=== PATIENT | female | born 1980 | race Caucasian/White ===

== ENCOUNTER 2019-07-22 16:34 | Emergency (ER) | payer BC ==
[~2019-07-22] VITALS: Ht 167.6 cm; Wt 122.5 kg
[2019-07-22 16:50] VITALS: BP 158/89
[2019-07-22] MEDS ORDERED: HYDROcodone/APAP 5/325MG 1 TAB TABLET PO ONE (17:00)
--- NOTE | 2019-07-22 17:06 | PHYS DOC ---
Past Medical History Past Medical History: Diabetes-Type II, Pancreatitis Additional Past Medical Histor: POLYCYSTIC OVIARIAN DISEASE (LESLIE PINEDA APRN) Past Surgical History: Cholecystectomy Additional Past Surgical Histo: RIGHT ANKLE (LESLIE PINEDA APRN) Alcohol Use: None Drug Use: None (LESLIE PINEDA APRN) Attending Signature I have participated in the care of this patient and I have reviewed and agree with all pertinent clinical information above including history, exam, and recommendations. (CHERELLE SHANKAR MD) Adult General Chief Complaint Chief Complaint: TOE PROBLEM HPI HPI Patient is a 38 year old female who presents with Patient states a metal piece under her bed jammed between her Right third and fourth toe this morning. Patient has bruising and 1+ swelling to the 4th toe and the dorsal foot just distal to the 3rd, 4th, and fifth toes. There is also tenderness in the areas of bruising. Patient rates her pain a 9./10 and states it is throbbing. (LESLIE PINEDA APRN) Review of Systems Review of Systems Musculoskeletal: Denies back pain. Right foot pain and bruising joint pain [] Integument: Bruising to right 3rd toe and dorsal foot. Denies rash or skin lesions [] All other systems were reviewed and found to be within normal limits, except as documented in this note. (LESLIE PINEDA APRN) Current Medications Current Medications Current Medications Medications (Trade) Dose Ordered Sig/Janie Start Time Stop Time Status Last Admin Dose Admin Acetaminophen/ Hydrocodone Bitart (Lortab 5/325) 1 tab 1X ONCE 07/22/19 17:00 07/22/19 17:02 DC 07/22/19 17:09 1 TAB (CHERELLE SHANKAR MD) Allergies Allergies Allergies Coded Allergies Type Severity Reaction Last Updated Verified No Known Drug Allergies 07/22/19 No (CHERELLE SHANKAR MD) Physical Exam Physical Exam Constitutional: Well developed, well nourished, no acute distress, non-toxic appearance. [] Skin: Warm, dry, no erythema, no rash. [] Extremities: Right 3rd toe and dorsal foot tenderness, no cyanosis, no clubbing, ROM intact, Right 3rd toe and dorsal foot 1+ edema. [] Neurologic: Alert and oriented X 3, normal motor function, normal sensory function, no focal deficits noted. [] Psychologic: Affect normal, judgement normal, mood normal. [] (LELSIE PINEDA APRN) Current Patient Data Vital Signs Vital Signs Date Time Temp Pulse Resp B/P (MAP) Pulse Ox O2 Delivery O2 Flow Rate FiO2 07/22/19 16:50 98.0 106 16 158/89 (112) 98 Room Air 98.0 (CHERELLE SHANKAR MD) EKG EKG [] (LESLIE PINEDA APRN) Radiology/Procedures Radiology/Procedures [] (LESLIE PINEDA APRN) Course & Med Decision Making Course & Med Decision Making Ambulatory with steady gait. Patient states she can not wiggle toes due to pain. Cap refill < 3 seconds. Skin pink warm and dry. Denies numbness or tingling. Pedal pulse strong and present. Dr Shankar has read the xray as no acute findings. Patient is given a post op shoe. Patient to follow up with primary care. (LESLIE PINEDA APRN) Dragon Disclaimer Dragon Disclaimer This electronic medical record was generated, in whole or in part, using a voice recognition dictation system. (LESLIE PINEDA APRN) Departure Departure Impression: Primary Impression: Contusion, foot Disposition: HOME, SELF-CARE Condition: STABLE Referrals: NON,STAFF (PCP) Patient Instructions: Contusion Additional Instructions: Follow up with primary care provider. Use ice and elevation. Scripts Ibuprofen (IBUPROFEN) 600 Mg Tablet 600 MG PO PRN Q6HRS PRN for INFLAMMATION, #5 TAB Prov: LESLIE PINEDA APRN 07/22/19 Problem Qualifiers Primary Impression: Contusion, foot Encounter type: initial encounter Laterality: right Qualified Codes: S90.31XA - Contusion of right foot, initial encounter LESLIE PINEDA APRN Jul 22, 2019 17:06 CHERELLE SHANKAR MD Jul 23, 2019 06:09
[2019-07-22] MEDS ORDERED: IBUP-1007 PO (17:46)
--- NOTE | 2019-07-22 18:45 | RAD ---
Three-view right foot radiographs 07/22/2019 CLINICAL HISTORY: Right foot pain post injury. AP, lateral and oblique digital radiographs of the right foot were obtained. Side plates and bone screws are seen involving the distal right fibula and tibia. No fracture or dislocation of the right foot is seen. Mild degenerative changes are seen involving the first MTP joint and scattered throughout the interphalangeal joints of the right foot. Moderate enthesophyte formation is seen involving the dorsal aspect of the posterior right calcaneus. IMPRESSION: No fracture or dislocation of the right foot is seen. Electronically signed by: Jeremy Pool MD (07/22/2019 6:42 PM) [facility]
== END 2019-07-22 17:52 | disposition home or self-care (01) ==
LOC: ER 16:34
DX: S90.31XA Contusion of right foot, initial encounter (principal); E11.9 Type 2 diabetes mellitus without complications; W23.0XXA Caught, crushed, jammed, or pinched between moving objects, initial encounter; Y93.89 Activity, other specified; Y92.89 Other specified places as the place of occurrence of the external cause; Y99.8 Other external cause status
CPT/HCPCS: 73630; 99284

== ENCOUNTER 2022-02-11 14:25 | Emergency (ER) | payer BC ==
[~2022-02-11] VITALS: Ht 167.6 cm; Wt 107.7 kg
[~2022-02-11 14:25] MED LIST: IBUP-1007 PO
--- NOTE | 2022-02-11 15:25 | PHYS DOC ---
Past Medical History Past Medical History: Diabetes-Type II, Pancreatitis Additional Past Medical Histor: PCOS Past Surgical History: No Surgical History Additional Past Surgical Histo: RIGHT ANKLE Smoking Status: Never Smoker Alcohol Use: None Drug Use: None General Adult EDM: Chief Complaint: HEAD INJURY/TRAUMA HPI: HPI: Patient is a 41 year old female who presents with Monday she was in over moving things in the mondge when she stood up hitting her head on the door of the freezer really hard. She hit the left back of her head causing her to lose consciousness for around 5 minutes. Since then she has had a headache and dizziness. She is not on blood thinners. She states that she will be talking to her boyfriend or her brother and then they state that she suddenly blanks out but does not pass out and it lasts for mere seconds. She rates her pain a 8 out of 10. She denies vision change, nausea, vomiting, fever, neck pain, back pain, hearing change, numbness or tingling.. Review of Systems: Review of Systems: Constitutional: Denies fever or chills. [] Eyes: Denies change in visual acuity. [] HENT: Denies nasal congestion or sore throat. +head injury [] Respiratory: Denies cough or shortness of breath. [] Cardiovascular: Denies chest pain or edema. [] GI: Denies abdominal pain, nausea, vomiting, bloody stools or diarrhea. [] : Denies dysuria. [] Musculoskeletal: Denies back pain or joint pain. [] Integument: Denies rash. [] Neurologic: + headache, denies focal weakness or sensory changes. +dizziness. +loc[] Endocrine: Denies polyuria or polydipsia. [] Lymphatic: Denies swollen glands. [] Psychiatric: Denies depression or anxiety. [] Heart Score: C/O Chest Pain: No Allergies: Allergies: Allergies Coded Allergies Type Severity Reaction Last Updated Verified No Known Drug Allergies 02/11/22 No Physical Exam: PE: Constitutional: Well developed, well nourished, no acute distress, non-toxic appearance. [] HENT: Normocephalic, atraumatic, bilateral external ears normal, oropharynx moist, no oral exudates, nose normal. [] Eyes: PERRLA, EOMI, conjunctiva normal, no discharge. [] Neck: Normal range of motion, no tenderness, supple, no stridor. [] Cardiovascular:Heart rate regular rhythm, no murmur [] Lungs & Thorax: Bilateral breath sounds clear to auscultation [] Abdomen: Bowel sounds normal, soft, no tenderness, no masses, no pulsatile masses. [] Skin: Warm, dry, no erythema, no rash. tenderness to back of left scalp[] Back: No tenderness, no CVA tenderness. [] Extremities: No tenderness, no cyanosis, no clubbing, ROM intact, no edema. [] Neurologic: Alert and oriented X 3, normal motor function, normal sensory function, no focal deficits noted. [] Psychologic: Affect normal, judgement normal, mood normal. [] Current Patient Data: Vital Signs: Vital Signs Date Time Temp Pulse Resp B/P (MAP) Pulse Ox O2 Delivery O2 Flow Rate FiO2 02/11/22 14:33 98.6 109 18 139/72 (94) 97 Room Air 98.6 EKG: EKG: [] Radiology/Procedures: Radiology/Procedures: [] Impression: [facility] [address] [place] [address] IMAGING REPORT Signed PATIENT: RITO PHILLIPS I ACCOUNT: [id number] : 1980 LOCATION: ER AGE: 41 SEX: F EXAM STATUS: REG ER ORD. PHYSICIAN: LESLIE PINEDA APRN REASON: HEAD INJURY, LOC, DIZZINESS PROCEDURE: CT HEAD AND CERVICAL SPINE WO EXAM: CT HEAD WITHOUT IV CONTRAST CLINICAL HISTORY: Reason: HEAD INJURY, LOC, DIZZINESS / Spl. Instructions: / History: COMPARISON: None. TECHNIQUE: Routine CT of the head without contrast. Soft tissues and bone windows were reviewed. PQRS compliance statement - One or more of the following individualized dose reduction techniques were utilized for this study: 1. Automated exposure control 2. Adjustment of the mA and/or kV according to patient size 3. Use of iterative reconstruction technique FINDINGS: There is no evidence of hemorrhage, mass or extra-axial fluid collection. Meza-white differentiation is maintained with no evidence of edema. There is no mass effect or shift of the intracranial structures. The ventricles, basilar cisterns and cortical sulci are normal in size and configuration for the patients stated age. The cerebellum and brainstem are unremarkable. The calvarium demonstrates no evidence of fracture or focal lesion. There is normal aeration of the visualized paranasal sinuses and mastoid air cells. The visualized portions of the orbits are normal. IMPRESSION: No evidence for acute intracranial process. EXAM: CT CERVICAL SPINE WITHOUT IV CONTRAST CLINICAL HISTORY: Reason: HEAD INJURY, LOC, DIZZINESS / Spl. Instructions: / History: COMPARISON: None available. TECHNIQUE: Helical CT of the cervical spine was performed. Axial, coronal and sagittal reformatted images were also performed. PQRS compliance statement - One or more of the following individualized dose reduction techniques were utilized for this study: 1. Automated exposure control 2. Adjustment of the mA and/or kV according to patient size 3. 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 Vertebral body heights are preserved. No acute fracture. No spondylolisthesis. Intervertebral disc heights are preserved. Mildly prominent cervical chain lymph nodes. IMPRESSION: No acute cervical spine fracture or subluxation. Electronically signed by: Victor M Fabian MD (02/11/2022 3:50 PM) [facility] DICTATED and SIGNED BY: VICTOR M FABIAN MD DATE: 02/11/22 1546 Course & Med Decision Making: Course & Med Decision Making Pertinent Labs and Imaging studies reviewed. (See chart for details) See HPI. Alert and oriented x4. Ambulatory steady gait. Speaks in full clear sentences. PERRLA. No nystagmus. No extraocular eye motion tenderness. Moving all extremities equally with equal strength and authorization nurse. Tenderness to the left back of her head palpation but no trauma seen. No laceration or abrasions or deformity to the skull. No basilar skull fracture signs. Patient is stable and in no distress. She is ambulatory with a steady gait. Vital signs remained stable. She remains alert and oriented x2. She states that she is not dizzy at this time. Patient is given education on concussion and strict return precautions. [] Dragon Disclaimer: Dragadiel Disclaimer: This electronic medical record was generated, in whole or in part, using a voice recognition dictation system. Departure Departure Impression: Primary Impression: Concussion Qualified Codes: S06.0X1A - Concussion with loss of consciousness of 30 minutes or less, initial encounter Disposition: HOME / SELF CARE / HOMELESS Condition: STABLE Referrals: NON,STAFF (PCP) Patient Instructions: Concussion-SportsMed Additional Instructions: Follow-up with your primary care provider if needed. If begin having vomiting, have another syncopal episode, vision change, numbness or tingling to 1 side your body or weakness return to emergency room. Scripts Hydrocodone Bit/Acetaminophen (HYDROCODONE-APAP 5-325 ) 1 Tab Tablet 1 TAB PO PRN Q6HRS PRN for PAIN, #10 TAB 0 Refills Prov: LESLIE PINEDA APRN 02/11/22 LESLIE PINEDA APRN February 11, 2022 15:24
--- NOTE | 2022-02-11 15:53 | RAD ---
EXAM: CT HEAD WITHOUT IV CONTRAST CLINICAL HISTORY: Reason: HEAD INJURY, LOC, DIZZINESS / Spl. Instructions: / History: COMPARISON: None. TECHNIQUE: Routine CT of the head without contrast. Soft tissues and bone windows were reviewed. PQRS compliance statement - One or more of the following individualized dose reduction techniques wer e utilized for this study: 1. Automated exposure control 2. Adjustment of the mA and/or kV according to patient size 3. Use of iterative reconstruction technique FINDINGS: There is no evidence of hemorrhage, mass or extra-axial fluid collection. Meza-white differentiation is maintained with no evidence of edema. There is no mass effect or shift of the intracranial structures. The ventricles, basilar cisterns and cortical sulci are normal in size and configuration for the akila ents stated age. The cerebellum and brainstem are unremarkable. The calvarium demonstrates no evidence of fracture or focal lesion. There is normal aeration of the visualized paranasal sinuses and mastoid air cells. The visualized portions of the orbits are normal. IMPRESSION: No evidence for acute intracranial process. EXAM: CT CERVICAL SPINE WITHOUT IV CONTRAST CLINICAL HISTORY: Reason: HEAD INJURY, LOC, DIZZINESS / Spl. Instructions: / History: COMPARISON: None available. TECHNIQUE: Helical CT of the cervical spine was performed. Axial, coronal and sagittal reformatted im ages were also performed. PQRS compliance statement - One or more of the following individualized dose reduction techniques wer e utilized for this study: 1. Automated exposure control 2. Adjustment of the mA and/or kV according to patient size 3. 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 Vertebral body heights are preserved. No acute fracture. No spondylolisthesis. Intervertebral disc heights are preserved. Mildly prominent cervical chain lymph nodes. IMPRESSION: No acute cervical spine fracture or subluxation. Electronically signed by: Victor M Muhammad MD (02/11/2022 3:50 PM) [facility]
[2022-02-11] MEDS ORDERED: HYDR-2761 PO (16:09)
[2022-02-11 16:25] VITALS: BP 124/68
== END 2022-02-11 16:25 | disposition home or self-care (01) ==
LOC: ER 14:25
DX: S06.0X1A Concussion with loss of consciousness of 30 minutes or less, initial encounter (principal); R42 Dizziness and giddiness; E11.9 Type 2 diabetes mellitus without complications; W22.09XA Striking against other stationary object, initial encounter; Y93.89 Activity, other specified; Y92.89 Other specified places as the place of occurrence of the external cause; Y99.8 Other external cause status
CPT/HCPCS: 70450; 72125; 99284-25